=== PATIENT | female | born 1990 | race African-American/Black ===

== ENCOUNTER 2024-07-20 17:52 | Emergency (ER) | payer SELFPAY ==
[~2024-07-20] VITALS: Ht 165.1 cm; Wt 59.0 kg
[2024-07-20 18:11] VITALS: O2SAT 99
[2024-07-20] MEDS ORDERED: ACET-2708 MT (19:37)
[2024-07-20 19:49] VITALS: BP 141/80; PULSE 93; RESP 19; TEMP 37.39188; O2SAT 99
== END 2024-07-20 19:50 | disposition home or self-care (01) ==
LOC: ER 17:52
DX: S00.03XA Contusion of scalp, initial encounter (principal); Y08.89XA Assault by other specified means, initial encounter; Y04.0XXA Assault by unarmed brawl or fight, initial encounter; Y92.89 Other specified places as the place of occurrence of the external cause; Y99.8 Other external cause status
CPT/HCPCS: 99284